=== PATIENT | male | born 1955 | race American Indian/Alaskan Native ===

== ENCOUNTER 2016-12-12 08:10 | Emergency (ER) | payer OTHER ==
[2016-12-12 08:22] VITALS: BP 138/74
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
--- NOTE | 2016-12-12 09:35 | Cat Scan Report ---
CT SCAN OF THE CERVICAL SPINE: HISTORY: neck pain, left thumb numbness. TECHNIQUE: Contiguous 1.25 mm axial images of the cervical spine were obtained. Sagittal and coronal reformatted images. FINDINGS: There is normal alignment of the cervical spine. The body, pedicles and posterior ligaments are intact. No evidence of fracture or subluxation is seen. Mild multilevel degenerative disc disease is identified. Anterior bridging osteophytes are identified at nearly all levels. The spinal canal appears normal. The prevertebral soft tissues appear normal. IMPRESSION: Mild cervical spondylosis. No acute injury is identified on CT.
--- NOTE | 2016-12-12 09:43 | XRay Report ---
LEFT RIBS: Routine views of the rib cage demonstrate normal mineralization with no significant contour abnormalities, fractures or destructive lesions. PA view of the chest demonstrates no underlying cardiopulmonary abnormalities, fluid or pneumothorax. IMPRESSION: Normal left rib series. LEFT HIP: The bony architecture is intact without evidence of fracture or dislocation. No significant soft tissue abnormality is seen on the left. There is dystrophic calcification lateral to the right hip joint. IMPRESSION: Normal left hip.
[2016-12-12] MEDS ORDERED: NORCO 5/325 PO ONE ×2 (11:07→11:08)
== END 2016-12-12 11:28 | disposition home or self-care (01) ==
LOC: ED 08:10
DX: S16.1XXA Strain of muscle, fascia and tendon at neck level, initial encounter (principal); S20.212A Contusion of left front wall of thorax, initial encounter; S70.02XA Contusion of left hip, initial encounter; V49.9XXA Car occupant (driver) (passenger) injured in unspecified traffic accident, initial encounter; Y93.89 Activity, other specified; Y99.9 Unspecified external cause status; Y92.410 Unspecified street and highway as the place of occurrence of the external cause
CPT/HCPCS: 72125; 82962